=== PATIENT | female | born 2000 | race Caucasian/White ===

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

== ENCOUNTER 2023-05-01 13:27 | Outpatient (RCR) | payer BC, MEDICAID, SELFPAY ==
--- NOTE | 2023-05-01 14:20 | OPREHPOC ---
Outpatient Therapy Plan of Care This is a Multidisciplinary Plan of Care that may contain components documented by all disciplines (PT, OT, and ST.) PT Problem 1 PT Problem #1 Knowledge Deficit PT Goal 1 Goal 1. Patient will perform independent HEP Target Visit 8 PT Problem 2 PT Problem #2 Pain PT Goal 1 Goal 1. Patient will be able to do all ADL's with pain no higher than 5/10 Target Visit 8 PT Problem 3 PT Problem #3 Impaired Strength PT Goal 1 Goal 1. Improve hip flexion and abduction to at least 4 +/5 shelly to support abdomen Target Visit 8
--- NOTE | 2023-05-01 14:21 | PTOPEVAL1 ---
Assessment and note entered by Karina Melendez DPT Evaluation Information Assessment Status Evaluation Subjective Information Pt reports she is 35w1d . Pt reports a lot of pelvic pressure. Highest pain 8/10 and lowest 3/10. Pain is mostly anterior. Pain increases with walking, stairs, taking care of her child. Sitting is the only thing that does not cause pain . Reports some numbness in her legs if she twists the wrong way. Pt is working currently and has to move a lot at her job which is difficult. Pt has been 3 times, delivered in 2019 and 2021. Vaginal deliveries without major complications. Current plan to be induced in about 4 weeks. Sees Brandy Saldana weekly. Patient goal: get my hips to stop hurting and be able to sleep. Reported Pain Level Pain Score 6: Self Report Assessment PT Clinical Summary The patient is presenting to skilled therapy at 35 weeks with significant anterior pelvic pain. She presents with decreased LE strength and SIJ impairments which are contributing to her pain and difficulty with most activities including standing and walking. She will benefit from therapy to address these impairments in order to decrease pain and improve function as her progresses. Plan of Care Interventions Gait Training,Hot Pack/Cold Pack,Manual Therapy, Neuro Re-education,Patient/Caregiver Education, Therapeutic Activities,Therapeutic Exercise PT Services Indicated Yes Treatment Frequency and 1-2 times a week for 4 weeks Duration These treatments will address the objective and functional deficits as defined above. The patient will be advanced safely and appropriately in order for the patient to progress towards his/her prior level of function. Additional exercises will be introduced and as well as a comprehensive home exercise program upon discharge, if needed, ?to ensure carryover of functional gains achieved in the clinic. This treatment plan has been reviewed and agreement upon by the patient.
--- NOTE | 2023-05-12 08:55 | PCPTNOTE ---
Patient did not show up for appointment 05/12/23.
--- NOTE | 2023-06-05 11:17 | PTOPDC ---
Assessment and note entered by Karina Melendez, DPT Evaluation Information Assessment Status Discharge - Pt Not Present Subjective Information - Assessment PT Clinical Summary Patient is being discharged per attendance policy. She has not attended therapy since 05/01/23. Plan of Care PT Services Indicated No
== END 2023-06-26 09:19 | disposition home or self-care (01) ==
LOC: ANHGOSHPT 13:27
PROVIDERS: PCP Registered Nurse; Visit Provider Advanced Practice Midwife
DX: R10.2 Pelvic and perineal pain (principal)
CPT/HCPCS: 97110; 97112; 97161; 99199

== ENCOUNTER 2023-05-29 06:34 | Inpatient (IN) | payer BC, MEDICAID, SELFPAY ==
[2023-05-29] VITALS (79 sets, daily range): BP systolic 93–134; BP diastolic 44–93; PULSE 67–110; RESP 16; TEMP 36.1–36.6; O2SAT 94–100; BMI 45.3
[2023-05-29] MEDS: OXYTOCIN 30 UNITS/NS 500 ML 30 UNITS/500 ML BAG IV CONT (07:24)
[2023-05-29 07:25] LABS: Basophils Percent Auto 0.3 % (0.2-1.2); Eosinophils Absolute Auto 0.1 K/mm3 (0-0.3); Eosinophils Percent Auto 0.7 % (0-4.4); Hematocrit 37.6 % (37.0-47.0); Hemoglobin 12.7 g/dL (12.0-15.0); Immature Granulocyte Absolute 0.06 K/mm3 (0.00-0.031); Immature Granulocyte Percent A 0.5 % (0-0.5); Lymphocytes Absolute Auto 2.41 K/mm3 (0.9-3.2); Lymphocytes Percent Auto 19.8 % (18.3-44.2); Mean Corpuscular HGB Conc 33.8 g/dl (32-36); Mean Corpuscular Hemoglobin 29.9 pg (26-34); Mean Corpuscular Volume 88.5 fl (80-100); Mean Platelet Volume 12.1 fl (7.4-10.4); Monocytes Absolute Auto 0.8 K/mm3 (0.1-0.6); Monocytes Percent Auto 6.5 % (2.6-8.5); Neutrophils Absolute Auto 8.8 K/mm3 (1.3-6.7); Neutrophils Percent Auto 72.2 % (45.5-73.1); Platelet Count Result 187 k/mm3 (150-375); Red Blood Count 4.25 M/mm3 (4.2-5.4); Red Cell Distribution Width 13.2 % (11.5-14.5); White Blood Count 12.2 K/mm3 (4.5-10.0)
[2023-05-29] MEDS: LACTATED RINGERS 1,000 ML 125 ML IV CONT ×2 (07:25→12:08)
--- NOTE | 2023-05-29 07:57 | WPDOBADMIT ---
Obstetrics - Admit Note Admission Note: record reviewed. No pertinent additions to the history and/or any subsequent changes in the physical findings that are not consistent with the expected course of the were found. admit for IOL, obesity, SVE outer os 4, /-3, plan pitocin Additions to the history and/or subsequent changes in the physical findings follow. None.
[2023-05-29 08:14] LABS: Rapid Plasma Reagin Non-Reactive (NonReactive)
--- NOTE | 2023-05-29 15:56 | PM.OBPRVD ---
OB - Vaginal Delivery Note Procedure Delivery date: 05/29/23 Induction method: AROM and Per Pitocin Protocol Delivery monitor: External FHT and Internal FHT Route of delivery: Episiotomy description: None Laceration Description: None Specimen: No Quantitative Blood Loss (ml): 85 Anesthesia type: Epidural Disposition: Floor [place] Baby Date of : 05/29/23 Time of : 15:48 Weeks of gestation at delivery: 39 Infant gender: Male presentation: vertex position: Other (OP, compound left arm) Placenta delivery description: Spontaneous Cord Vessel Description: 3 Vessels and Delayed Cord Clamping score one minute: 8 score five minutes: 9 Narrative: mother and baby in stable condition
[2023-05-29] MEDS: OXYTOCIN 30 UNITS/NS 500 ML 30 UNITS/500 ML BAG 125 UNITS IV CONT (16:30)
[2023-05-29] MEDS: IBUPROFEN 600 MG TABLET PO (18:52)
[2023-05-29] MEDS: ACETAMINOPHEN 325 MG TABLET 650 MG PO (18:52)
[2023-05-30] MEDS: IBUPROFEN 600 MG TABLET PO ×2 (03:55→09:25)
[2023-05-30 05:56] LABS: Hematocrit 33.1 % (37.0-47.0)
[2023-05-30 07:35] VITALS: BP 115/75; PULSE 58; RESP 16; TEMP 36.2; O2SAT 100
--- NOTE | 2023-05-30 08:22 | PM.OBPNVD ---
OB - PN: Subj Subjective Date/time seen: 05/30/23 08:22 Interval history: PPD#1 Doing well, baby well Some back pain Voiding spontaneously OB - PN: Obj Data Labs 05/30/23 03:38 Labs: Laboratory Results - last 24 hr 05/30/23 03:38 Hgb 11.0 L Hct 33.1 L OB - PN A/P Plan day: 1 Plan: routine care Time Spent With Patient Time: Total time spent is greater than 50% in coordination of care (as documented) at patient's floor/unit and/or counseling patient: Review of Systems Review of Systems: All systems reviewed & are unremarkable except as noted in HPI and below Exam Const: General: comfortable, no acute distress and alert Resp: Effort & Inspection: normal respiratory effort
[2023-05-30] MEDS: DOCUSATE SODIUM 100 MG CAPSULE PO (09:23)
[2023-05-30] MEDS: MULTIVIT/MIN/PREN/FOL AC/IRON TABLET 1 TAB PO (09:23)
--- NOTE | 2023-05-30 10:44 | PC.NURSE ---
[id number] Introductions were made, then consulted with patient to assess needs related to . Mother led the conversation with her?plans to feed?her infant, the bottle 3 hours ago, undecided on how she wants to feed her infant, the?experience so far and her unsuccessful history of making milk and her first. Mother works well with her with encouragement and education. Encouraged understanding of the benefits of skin to skin (demonstrating unwrapping infant and placing upright on her chest), stimulating with massage touch, changing positions to encourage wakefulness, how to watch for early feeding cues, responsive feeding, feeding on demand (aiming for 8-12 times in 24 hours, about every 2-3 hours), milk production, building/maintaining a milk supply, duration of feeding, signs of adequate intake/output and how to record on the feeding sheet. Reviewed positioning and ear, shoulder, hip alignment, supporting the breast to facilitate a deep latch, asymmetrical latch (off-center), leading with the chin with a big, open, wide gape and body close to mother. Mother's nipples are inverted. latched optimally to the right breast in football position, pulled the nipple out and it remained out for a bit. stopped sucking and was reluctant to attempt again. Infant is spitty and gaggy . Nipple care reviewed with optimal latch and good positioning. Assessment of the breast reveals a wide space, lack of roundness to the breast and the nipple point downward. Discussed with mother what type of pump to use, hand expression or manual pumping to pump for comfort and nipple stretching/stimulation for adequate milk production every 3 hours (8 times in 24 hours) 1-2 times at night. Instructions given on cleaning, care, usage, that there should be no pain, pumping schedule for milk production, collection, and storage of human milk. Mother is encouraged to record pumping schedule on the feeding sheet. Mother voiced understanding of skin to skin, stimulating with massage touch, responsive feedings, hand expressed colostrum, talking to infant to encourage if it has been 2 -2.5 hours since the start of the last , to call if infant does not latch, or if there is discomfort with . RN name written on the communication board.Mother voiced understanding of information, demonstrated learning and will call if there is a request for assistance. Primary RN is present at the end of the consult.
[2023-05-30 12:00] VITALS: BP 116/64; PULSE 79; RESP 16; TEMP 36.6; O2SAT 100
--- NOTE | 2023-05-30 13:32 | WPDANLDPN2 ---
Anes-Prog Note L&D Date/Time: 05/30/23 13:32 Comfortable throughout: labor and delivery Neuraxial method: epidural Epidural/Spinal procedure site: clean & non-tender Neuro status: Neuro function grossly intact. Cardiovascular status: normal Respiratory status: normal Airway patency: baseline Mental status: baseline Post-Op hydration status: normal Vital Signs: Last Vital Signs Temp 36.2 C L 05/30/23 07:35 Pulse 58 L 05/30/23 07:35 Resp 16 05/30/23 07:35 BP 115/75 05/30/23 07:35 Pulse Ox 100 05/30/23 07:35 O2 Del Method Room Air 05/30/23 08:40 Pain score (VAS): 07/19 I/O: Intake & Output 05/29/23 05/30/23 05/30/23 23:59 07:59 15:59 Intake Total 500 Output Total 135 Balance 365 Post-procedural complaints: none Patient feedback: Patient satisfied with anesthetic care.
--- NOTE | 2023-05-31 07:42 | PM.OBDSVD ---
DS: Admitting Diagnosis Discharge Date 05/30/23 Admitting Diagnosis 05/31/23 DS: Discharge Diagnosis Discharge Diagnosis (1) Vaginal delivery: Code(s): O80 - Encounter for full-term uncomplicated delivery Status: Acute OB - DS: Summary OB Procedures : None OB Procedures Intrapartum: Spontaneous Vag Delivery OB Procedures: : None Peripartum Data Laceration Description: None Episiotomy description: None Time Spent with Patient Time attestation: Total time spent providing and/or coordinating discharge services: Discharge Plan Discharge Consulting providers: Casie Carlos Discharging Clinician: Giorgi Peña Patient Disposition: Home, Self-Care Activity: other - see discharge instructions Diet: regular Discharge Instructions: Education: Mom and Baby Guide Given to: Mother Follow-Up: Call your delivering provider's office for an appointment to be seen in: 4 Weeks Mom and baby should come to the [facility] for the follow-up appointment. Appointment Date/Time: May 31, 2023 at 11:00 am What to expect at your follow-up visit: Blood Pressure Check Physical Assessment Call [phone] if you are unable to keep your appointment time. BREAST CARE: * Wear a snug supportive bra. * For engorgement discomfort: Breast Feeding: * Apply warm moist washcloths * Express milk as needed to relieve engorgement * Wear loose clothing Bottle Feeding: * May apply ice packs * For sore nipples: * Identify correct latch-on * Apply warm moist washcloths before and after nursing * Air dry nipples after nursing * May apply Lansinoh cream to nipples PERINEAL CARE: * Until bleeding stops, use your diya bottle after urinating * Change your pad frequently throughout the day * You may take sitz baths several times a day (fill your bathtub with warm water and soak for 20 minutes.) Do NOT bathe in the water * No tub baths until seen by your physician - You may shower ACTIVITY: * Rest as much as possible. * Do not exercise or lift anything heavier than your baby (such as laundry or other children.) * Avoid stairs or driving as much as possible. * Do not put anything into the vagina. No douching, tampons, or sexual activity until seen by physician. NOTIFY PHYSICIAN IF YOU HAVE ANY QUESTIONS OR IF ANY OF THE FOLLOWING SYMPTOMS OCCUR: * If your vaginal bleeding becomes foul smelling. * If your vaginal bleeding becomes more heavy than a period or if your bleeding changes from pink to bright red. However, you may pass an occasional walnut-sized clot once or twice for the first week . * If you experience a sharp, shooting pain in your calves. * If you discover a hard, reddened area on your breast or if you experience flu-like symptoms. DIET: * Eat regular, well-balanced meals. * Drink plenty of fluids daily. If , drink to thirst. Patient Instructions: How to Stop Smoking (DC) Stand Alone Forms: General Discharge Information Follow-up/Referrals: Brandy Saldana CNM [Certified Nurse Patent Solicitor] - 4 Weeks Discharge Medications: Continued PNV cmb#95-ferrous fumarate-FA [] 28 mg iron- 800 mcg Tablet 1 tablet PO DAILY Date of admission: 05/29/23 06:34 Primary Care Provider: JaunDafne Admitting Provider: Arthur Rodriguez Attending physician on admission: Giorgi Peña Condition: Stable
[2023-05-31 11:33] VITALS: BP 140/79; PULSE 69; RESP 18; TEMP 36.8; O2SAT 100
== END 2023-05-30 19:35 | disposition home or self-care (01) | DRG 807 ==
LOC: ANHOB2 05-30 17:45 → ANHLDR 05-31 07:27 → ANHOB2 05-31 07:27
PROVIDERS: Advanced Practice Midwife; Admitting Provider Obstetrics & Gynecology; PCP Registered Nurse; Visit Provider Obstetrics & Gynecology
DX: O99.214 Obesity complicating childbirth (principal); Z37.0 Single live birth; O32.6XX0 Maternal care for compound presentation, not applicable or unspecified; O70.0 First degree perineal laceration during delivery; Z3A.39 39 weeks gestation of pregnancy
CPT/HCPCS: 36415; 85014; 85018; 85025; 86592; 86850; 86900; 86901; A9270; J2590; J2795; J7120

== ENCOUNTER 2023-07-12 12:20 | Emergency (ER) | payer BC, MEDICAID, SELFPAY ==
[2023-07-12 12:25] VITALS: BP 133/81; PULSE 101; RESP 16; TEMP 36.5; O2SAT 96
[2023-07-12 13:34] LABS: Influenza A QL RT-PCR Negative (Negative); Influenza B QL RT-PCR Negative (Negative); RSV RNA, RT-PCR Positive (Negative); SARS-CoV-2 RNA PCR Negative (Negative)
--- NOTE | 2023-07-12 14:41 | ED.GENADULT ---
HPI - General Adult General Chief complaint: Upper Respiratory Infection Stated complaint: Cough, runny nose Time Seen by Provider: 07/12/23 12:48 Source: patient Mode of arrival: ambulatory Limitations: no limitations History of Present Illness HPI narrative: this is a 23-year-old female who presents to the ED with chief complaint of URI symptoms x2 days. Reports cough, runny nose and congestion. Reports her small children are sick with the same symptoms. Denies shortness of breath, chest pain, renal compromise condition. Related Data Home Medications Medication Instructions Recorded Confirmed vit no.95-ferrous 1 tablet PO DAILY 10/09/19 05/29/23 fumarate 28 mg-folic acid 800 mcg tablet () Allergies Allergy/AdvReac Type Severity Reaction Status Date / Time No Known Allergies Allergy Verified 07/12/23 12:24 Review of Systems Review of Systems: All systems as dictated in [facility] Past Medical History Medical History GDM (gestational diabetes mellitus) Family History Family History Grandparent Leukemia Grandparent Leukemia Grandparent Non-Hodgkin lymphoma Social History Social History Smoking status: Former smoker Tobacco type: e-cigarettes/vaping Second hand tobacco smoke exposure: Yes Substance use: never Lack of Transportation: No Lack of Food: Never True Current Housing: I Have Housing Concerned About Future Housing: No Difficulty Paying Gas/Electric Bills: No Difficulty Paying for Meds: No Currently Unemployed: No Education: Trade/Vocational Certificate Difficulty w/ Childcare or Family Care: No Spiritual care concerns: No Exam Narrative: GENERAL: Well-appearing, well-nourished, and in no acute distress. HEAD: Normocephalic, atraumatic. EYES: PERRLA and EOMI. ENT: Nares clear, no rhinorrhea or epistaxis. Mucous membranes moist. Oropharynx without tonsillar hypertrophy exudate or other lesions. NECK: Supple. No adenopathy or masses. CHEST: No respiratory distress. Clear to auscultation. No wheezes rales or rhonchi HEART: Regular rate and rhythm. No murmur heard. Normal peripheral pulses. ABDOMEN: Soft, nontender, nondistended, normal active bowel sounds. MSK: Normal range of motion. No edema. SKIN: Warm, dry, no rash. NEURO: Alert and oriented x3. No focal deficits. PSYCH: Normal mood and affect. Course Vital Signs Vital signs: Vital Signs Temperature 97.7 F 07/12/23 12:25 Pulse Rate 101 H 07/12/23 12:25 Respiratory Rate 16 07/12/23 12:25 Blood Pressure 133/81 07/12/23 12:25 Pulse Oximetry 96 07/12/23 12:25 Temperature 97.7 F 07/12/23 12:25 Pulse Rate 101 H 07/12/23 12:25 Respiratory Rate 16 07/12/23 12:25 Blood Pressure 133/81 07/12/23 12:25 Pulse Oximetry 96 07/12/23 12:25 Oxygen Delivery Room Air 07/12/23 14:04 Medical Decision Making MDM Narrative Medical decision making narrative: This is a 23-year-old female who presents to the ED with chief complaint of URI symptoms x2 days. Vitals are normal. Saturating well on room air. Exam intact. RSV swab positive. Pt will be discharged in stable condition. Return precautions given and supportive measures discussed. Pt is understanding and agreeable with plan for discharge and follow-up with PCP. Vital Signs Vital Signs: Vital Signs Temperature 97.7 F 07/12/23 12:25 Pulse Rate 101 H 07/12/23 12:25 Respiratory Rate 16 07/12/23 12:25 Blood Pressure 133/81 07/12/23 12:25 Pulse Oximetry 96 07/12/23 12:25 Temperature 97.7 F 07/12/23 12:25 Pulse Rate 101 H 07/12/23 12:25 Respiratory Rate 16 07/12/23 12:25 Blood Pressure 133/81 07/12/23 12:25 Pulse Oximetry 96 07/12/23 12:25 Oxygen Delivery Room
== END 2023-07-12 14:56 | disposition home or self-care (01) ==
PROVIDERS: Student in an Organized Health Care Education/Training Program; Emergency Provider Physician Assistant; PCP Registered Nurse
DX: J06.9 Acute upper respiratory infection, unspecified (principal); B97.4 Respiratory syncytial virus as the cause of diseases classified elsewhere; Z20.822 Contact with and (suspected) exposure to COVID-19; Z87.891 Personal history of nicotine dependence
CPT/HCPCS: 87637; 99283

== ENCOUNTER 2023-09-07 06:41 | Outpatient (CLI) | payer BC, MEDICAID, SELFPAY ==
--- NOTE | ~2023-09-07 | CT_ITS ---
EXAMINATION: CT abdomen pelvis wo con DATE: 09/07/2023 06:59 INDICATION: Pain in pelvis. TECHNIQUE: Computed tomography (CT) of the abdomen and pelvis was performed without intravenous contr ast. Automated exposure control and iterative reconstruction technique were employed. The dose-length product was 1560.54 mGy-cm. COMPARISON: None. FINDINGS: The visualized portions of the lung bases demonstrate mild atelectasis on the right. No ple ural effusion. The heart size is normal. No pericardial effusion. The liver, gallbladder, spleen, howard creas, adrenal glands, and kidneys are normal. There is no urolithiasis. There is an intrauterine dev ice in expected position. There are no dilated loops of bowel. The appendix is normal. There are no p athologically enlarged lymph nodes. There is no free intraperitoneal fluid. The bones are unremarkabl e. IMPRESSION: 1. No etiology for the patient's symptoms. Reviewed, dictated and finalized at location [facility]
== END 2023-09-07 06:42 | disposition home or self-care (01) ==
PROVIDERS: PCP Registered Nurse; Visit Provider Advanced Practice Midwife
DX: R10.2 Pelvic and perineal pain (principal)
CPT/HCPCS: 74176

== ENCOUNTER 2024-01-01 11:08 | Emergency (ER) | payer BC, MEDICAID, SELFPAY ==
[2024-01-01 11:10] VITALS: BP 146/84; PULSE 91; RESP 18; TEMP 36.5; O2SAT 100
--- NOTE | 2024-01-01 14:10 | ED.GENADULT ---
HPI - General Adult General Chief complaint: Headache Stated complaint: migraine h/a since Monday Time Seen by Provider: 01/01/24 13:48 History of Present Illness HPI narrative: 23-year-old female present to the emergency department for evaluation for migraine headache. Patient states she began developing headache on Monday. Patient's child is also being seen and was diagnosed with a viral syndrome. Patient does have a rash to her arms and abdomen that does appear to be a viral exanthem Related Data Home Medications Medication Instructions Recorded Confirmed vit no.95-ferrous 1 tablet PO DAILY 10/09/19 05/29/23 fumarate 28 mg-folic acid 800 mcg tablet () Allergies Allergy/AdvReac Type Severity Reaction Status Date / Time No Known Allergies Allergy Verified 07/12/23 12:24 Review of Systems Review of Systems: All systems reviewed & are unremarkable except as noted in HPI and below PMFSH Past Medical History Medical History GDM (gestational diabetes mellitus) Family History Family History Grandparent Leukemia Grandparent Leukemia Grandparent Non-Hodgkin lymphoma Social History Social History Smoking status: Former smoker Tobacco type: e-cigarettes/vaping Second hand tobacco smoke exposure: Yes Substance use: never Lack of Transportation: No Lack of Food: Never True Current Housing: I Have Housing Concerned About Future Housing: No Difficulty Paying Gas/Electric Bills: No Difficulty Paying for Meds: No Currently Unemployed: No Education: Trade/Vocational Certificate Difficulty w/ Childcare or Family Care: No Spiritual care concerns: No Exam Narrative: APPEARANCE: Well appearing, no pain, no distress, well-nourished. HEAD: normocephalic, atraumatic. EYES: PERRLA/EOMI, conjunctivae clear. NOSE: Normal no drainage EARS:TMS clear with good light reflex. THROAT: Pharynx clear, no exudate. NECK: Supple. No adenopathy, no masses. RESPIRATORY: Airway patent, respirations nonlabored. Clear to auscultation bilaterally, no rales, rhonchi, wheezing. CARDIOVASCULAR: Regular rate and rhythm without murmurs rubs or gallops. ABDOMINAL: Soft, nontender, nondistended, normal bowel sounds MUSCULOSKELETAL: Moves all extremities. Strength/ROM intact, No edema, No calf tenderness. NEURO: Alert. Cranial nerves II through XII intact. Grossly intact SKIN: Viral exanthem rash Course Course Emergency Course: Patient states he felt improved with treatment and was requesting discharge from the emergency department Vital Signs Vital signs: Vital Signs Temperature 97.7 F 01/01/24 11:10 Pulse Rate 91 01/01/24 11:10 Respiratory Rate 18 01/01/24 11:10 Blood Pressure 146/84 H 01/01/24 11:10 Pulse Oximetry 100 01/01/24 11:10 Oxygen Delivery Room Air 01/01/24 11:10 Temperature 97.7 F 01/01/24 11:10 Pulse Rate 91 01/01/24 11:10 Respiratory Rate 18 01/01/24 11:10 Blood Pressure 146/84 H 01/01/24 11:10 Pulse Oximetry 100 01/01/24 11:10 Oxygen Delivery Room Air 01/01/24 11:10 Medical Decision Making MDM Narrative Medical decision making narrative: 23-year-old female presents emergency department for evaluation of headache. Patient reports she does feel improved with treatment and did request to be discharged from the emergency department. Patient was encouraged of close follow-up with primary care physician. Vital Signs Vital Signs: Vital Signs Temperature 97.7 F 01/01/24 11:10 Pulse Rate 91 01/01/24 11:10 Respiratory Rate 18 01/01/24 11:10 Blood Pressure 146/84 H 01/01/24 11:10 Pulse Oximetry 100 01/01/24 11:10 Oxygen Delivery Room Air 01/01/24 11:10 Temperature 97.7 F 01/01/24 11:10 Pulse Rate 91 01/01/24 11:1
[2024-01-01] MEDS: PROCHLORPERAZINE EDISYLATE 10 MG/2 ML VIAL IV PUSH (14:27)
[2024-01-01] MEDS: KETOROLAC 15 MG/ML VIAL (*BKC) IV PUSH (14:27)
[2024-01-01] MEDS: SODIUM CHLORIDE 0.9% IV 1,000 ML 999 ML IV CONT (14:27)
--- NOTE | 2024-01-01 14:45 | PC.NURSE ---
Pt called out to nurses desk. Pt is tearful and states she wants to go home without receiving all of her IVF. ERP aware.
== END 2024-01-01 15:10 | disposition home or self-care (01) ==
PROVIDERS: Emergency Provider Emergency Medicine; PCP Registered Nurse
DX: G43.909 Migraine, unspecified, not intractable, without status migrainosus (principal); Z87.891 Personal history of nicotine dependence
CPT/HCPCS: 96374; 96375; 99284; J0780; J1885; J7030